=== PATIENT | male | born 1945 | race Caucasian/White ===

== ENCOUNTER 2021-07-28 10:13 | Outpatient (CLI) | payer MEDICARE | END 2021-07-28 10:14 | disposition home or self-care (01) | LOC: BICMRI 10:13 | PROVIDERS: ATTEND Physician Assistant | DX: M48.062 Spinal stenosis, lumbar region with neurogenic claudication (principal); M43.16 Spondylolisthesis, lumbar region; M47.816 Spondylosis without myelopathy or radiculopathy, lumbar region; M47.817 Spondylosis without myelopathy or radiculopathy, lumbosacral region; M48.07 Spinal stenosis, lumbosacral region | CPT/HCPCS: 72148 ==

== ENCOUNTER 2022-08-01 16:17 | Inpatient (IN) | payer MEDICARE ==
[~2022-08-01 16:17] MED LIST: Iopamidol-370 76% 500 ML MDV (1 ML CHARGE) ONE
[2022-08-01 17:32] LABS: Hemoglobin 16.9 g/dL (14.0-18.0); Mean Corpuscular HGB CONC 32.4 g/dL (32.0-36.0); Mean Corpuscular Hemoglobin 34.7 pg (27.0-31.0); Platelet Count 113 10x3/uL (130-400); RBC Distribution Width 14.2 % (11.5-14.5); Red Blood Cell (RBC) Count 4.87 mill/uL (4.70-6.10); White Blood Cell (WBC) Count 8.4 10x3/uL (4.8-10.8)
[2022-08-01 17:49] LABS: ALT (SGPT) 35 U/L (8-55); AST (SGOT) 32 U/L (5-34); Alkaline Phosphatase 90 U/L (40-110); Anion Gap 15 mmol/L (10-20); BUN (Urea Nitrogen) 25 mg/dL (8.4-25.7); Calc. Creatinine Clearance 0 mL/min (70-130); Calcium 9.3 mg/dL (7.8-10.44); Carbon Dioxide 28 mmol/L (23-31); Chloride 99 mmol/L (98-107); Estimated GFR 46; Globulin 2.1 g/dL (2.4-3.5); Glucose 93 mg/dL (83-110); Protein, Total 6.1 g/dL (5.8-8.1); Sodium 137 mmol/L (136-145)
[2022-08-01 18:22] LABS: #Eosinphils 0.1 thou/uL (0.0-0.7); #Lymphocytes 1.2 thou/uL (1.20-3.40); %Basophils 0.5 % (0.0-1.0); %Lymphocytes 14.7 % (21.0-51.0); %Monocytes 11.8 % (0.0-10.0); MDiff Complete? YES; Macrocytosis SLIGHT = 6-15 cells (100X) (0-5/hpf); Platelet Morphology Comment Appears Decreased
[2022-08-01] MEDS ORDERED: cefTRIAXone (ROCEPHIN) 1 GM VIAL ONE (18:36)
[2022-08-01 19:34] LABS: CKMB 6.5 ng/mL (0-6.6)
[2022-08-01] MEDS ORDERED: Azithromycin 500 MG VIAL ONE (19:39)
[2022-08-01] MEDS ORDERED: Furosemide 40 MG/4 ML VIAL ONE (19:39)
[2022-08-01] MEDS ORDERED: hydrALAZINE 20 MG/ML VIAL SLOW IVP PRN (19:56)
[2022-08-01 20:36] VITALS: BMI 34.4
[2022-08-01] MEDS ORDERED: Apixaban 5 MG TAB PO SCH (21:00)
[2022-08-01] MEDS ORDERED: Heparin 5,000 UNITS/ML VIAL SC SCH (21:00)
[2022-08-02] MEDS ORDERED: DULoxetine 60 MG CAP PO SCH (00:15)
[2022-08-02] MEDS: Furosemide 40 MG/4 ML VIAL SLOW IVP SCH ×2 (05:48→13:24)
[2022-08-02 07:26] LABS: #Eosinphils 0.1 thou/uL (0.0-0.7); #Lymphocytes 1.2 thou/uL (1.20-3.40); #Monocytes 0.9 thou/uL (0.11-0.59); #Neutrophils 4.5 thou/uL (1.40-6.50); %Basophils 0.5 % (0.0-1.0); %Lymphocytes 17.4 % (21.0-51.0); %Monocytes 13.5 % (0.0-10.0); %Neutrophils 67.6 % (42.0-75.0); Hemoglobin 15.8 g/dL (14.0-18.0); Mean Corpuscular HGB CONC 31.9 g/dL (32.0-36.0); Mean Platelet Volume 8.8 fL (7.4-10.4); Platelet Count 117 10x3/uL (130-400); RBC Distribution Width 14.1 % (11.5-14.5); Red Blood Cell (RBC) Count 4.64 mill/uL (4.70-6.10); White Blood Cell (WBC) Count 6.7 10x3/uL (4.8-10.8)
[2022-08-02 07:42] LABS: ALT (SGPT) 34 U/L (8-55); AST (SGOT) 38 U/L (5-34); Alkaline Phosphatase 92 U/L (40-110); Anion Gap 20 mmol/L (10-20); BUN (Urea Nitrogen) 25 mg/dL (8.4-25.7); Calc. Creatinine Clearance 60 mL/min (70-130); Calcium 9.1 mg/dL (7.8-10.44); Carbon Dioxide 24 mmol/L (23-31); Chloride 98 mmol/L (98-107); Estimated GFR 49; Globulin 2.1 g/dL (2.4-3.5); Glucose 72 mg/dL (83-110); Magnesium 1.8 mg/dL (1.6-2.6); Potassium 3.9 mmol/L (3.5-5.1); Protein, Total 6.1 g/dL (5.8-8.1); Sodium 138 mmol/L (136-145)
[2022-08-02] MEDS ORDERED: Electrolyte Replacement Protocol 1 EACH FS SCH (08:15)
[2022-08-02] MEDS: DULoxetine 60 MG CAP PO SCH (08:59)
[2022-08-02] MEDS ORDERED: Electrolyte Replacement Protocol FS PRN (09:15)
[2022-08-02] MEDS ORDERED: Magnesium 2 GM/50 ML(in water) 2 GM in Premix Bag 1 BAG IVPB SCH (09:15)
[2022-08-02] MEDS: Aspirin 81 mg Enteric Coated Tablet PO SCH (09:22)
[2022-08-02] MEDS ORDERED: Carvedilol 3.125 MG TAB PO SCH (09:45)
[2022-08-02 11:11] LABS: CKMB 6.6 ng/mL (0-6.6)
[2022-08-02] MEDS ORDERED: Azithromycin 500 MG in Sodium Chloride 0.9% 250 ML 250 ML IVPB SCH (20:00)
[2022-08-02] MEDS: Doxycycline 100 MG CAP PO SCH (21:27)
[2022-08-02] MEDS: cefTRIAXone\\ROCEPHIN 2 GM in Sodium Chloride 0.9% 100 ML IVPB SCH (21:27)
[2022-08-02] MEDS: Carvedilol 3.125 MG TAB PO SCH (21:27)
[2022-08-03] MEDS: Furosemide 40 MG/4 ML VIAL SLOW IVP SCH ×2 (05:45→14:32)
[2022-08-03] MEDS: Carvedilol 3.125 MG TAB PO SCH ×2 (08:24→20:11)
[2022-08-03] MEDS: Doxycycline 100 MG CAP PO SCH ×2 (08:24→20:11)
[2022-08-03] MEDS: Aspirin 81 mg Enteric Coated Tablet PO SCH (08:25)
[2022-08-03] MEDS: DULoxetine 60 MG CAP PO SCH (08:25)
[2022-08-03 09:12] LABS: ALT (SGPT) 35 U/L (8-55); AST (SGOT) 37 U/L (5-34); Albumin 3.9 g/dL (3.4-4.8); Alkaline Phosphatase 98 U/L (40-110); BUN (Urea Nitrogen) 24 mg/dL (8.4-25.7); Bilirubin, Total 1.3 mg/dL (0.2-1.2); Calc. Creatinine Clearance 50 mL/min (70-130); Calcium 9.4 mg/dL (7.8-10.44); Estimated GFR 43; Globulin 2.4 g/dL (2.4-3.5); Glucose 99 mg/dL (83-110); Magnesium 2.1 mg/dL (1.6-2.6); Protein, Total 6.3 g/dL (5.8-8.1)
[2022-08-03 09:23] LABS: Anion Gap 22 mmol/L (10-20); Carbon Dioxide 31 mmol/L (23-31); Chloride 91 mmol/L (98-107); Potassium 4.2 mmol/L (3.5-5.1); Sodium 140 mmol/L (136-145)
[2022-08-03 10:47] LABS: #Eosinphils 0.1 thou/uL (0.0-0.7); #Lymphocytes 1.2 thou/uL (1.20-3.40); #Monocytes 0.9 thou/uL (0.11-0.59); #Neutrophils 3.5 thou/uL (1.40-6.50); %Basophils 0.6 % (0.0-1.0); %Eosinophils 2.7 % (0.0-10.0); %Lymphocytes 21.2 % (21.0-51.0); %Monocytes 12.7 % (0.0-10.0); Band 1 % (5-11); Eosinophils 3 % (0-10); Hemoglobin 17.4 g/dL (14.0-18.0); Lymphocytes 30 % (21-51); MDiff Complete? YES; Mean Corpuscular HGB CONC 32.3 g/dL (32.0-36.0); Mean Corpuscular Hemoglobin 34.5 pg (27.0-31.0); Mean Platelet Volume 8.9 fL (7.4-10.4); Monocytes 8 % (0-10); Neutrophil 55 % (42-75); Platelet Count 124 10x3/uL (130-400); Platelet Morphology Comment Appears Decreased; RBC Morphology Normal; Reactive Lymphocytes 3 % (0-10); Red Blood Cell (RBC) Count 5.04 mill/uL (4.70-6.10); White Blood Cell (WBC) Count 5.9 10x3/uL (4.8-10.8)
[2022-08-03] MEDS: Sacubitril 24MG/Valsartan 26 MG TAB PO SCH (20:11)
[2022-08-03] MEDS: cefTRIAXone\\ROCEPHIN 2 GM in Sodium Chloride 0.9% 100 ML IVPB SCH (20:11)
[2022-08-04 05:10] LABS: Anion Gap 13 mmol/L (10-20); BUN (Urea Nitrogen) 25 mg/dL (8.4-25.7); Calc. Creatinine Clearance 54 mL/min (70-130); Calcium 8.6 mg/dL (7.8-10.44); Carbon Dioxide 35 mmol/L (23-31); Chloride 94 mmol/L (98-107); Estimated GFR 48; Glucose 109 mg/dL (83-110); Magnesium 1.8 mg/dL (1.6-2.6); Sodium 139 mmol/L (136-145)
[2022-08-04] MEDS ORDERED: Potassium Chloride 20 MEQ TAB PO SCH ×2 (08:00→17:45)
[2022-08-04] MEDS ORDERED: Magnesium 2 GM/50 ML(in water) 2 GM in Premix Bag 1 BAG IVPB SCH (08:00)
[2022-08-04] MEDS ORDERED: Furosemide 40 MG TAB PO SCH (08:45)
[2022-08-04] MEDS: Carvedilol 3.125 MG TAB PO SCH ×2 (08:54→20:14)
[2022-08-04] MEDS: Sacubitril 24MG/Valsartan 26 MG TAB PO SCH ×2 (08:54→20:14)
[2022-08-04] MEDS: Aspirin 81 mg Enteric Coated Tablet PO SCH (08:55)
[2022-08-04] MEDS: DULoxetine 60 MG CAP PO SCH (08:55)
[2022-08-04] MEDS: Doxycycline 100 MG CAP PO SCH ×2 (08:55→20:14)
[2022-08-04] MEDS ORDERED: Furosemide 40 MG/4 ML VIAL SLOW IVP SCH (09:00)
[2022-08-04 17:37] LABS: Potassium 3.2 mmol/L (3.5-5.1)
[2022-08-05 05:04] LABS: #Eosinphils 0.1 thou/uL (0.0-0.7); #Lymphocytes 1.4 thou/uL (1.20-3.40); #Neutrophils 4.2 thou/uL (1.40-6.50); %Basophils 0.3 % (0.0-1.0); %Eosinophils 2.2 % (0.0-10.0); %Lymphocytes 20.4 % (21.0-51.0); %Monocytes 14.4 % (0.0-10.0); %Neutrophils 62.7 % (42.0-75.0); Hemoglobin 17.1 g/dL (14.0-18.0); Mean Corpuscular HGB CONC 31.5 g/dL (32.0-36.0); Mean Corpuscular Hemoglobin 34.1 pg (27.0-31.0); Mean Platelet Volume 8.3 fL (7.4-10.4); Platelet Count 135 10x3/uL (130-400); RBC Distribution Width 13.9 % (11.5-14.5); Red Blood Cell (RBC) Count 5.02 mill/uL (4.70-6.10); White Blood Cell (WBC) Count 6.8 10x3/uL (4.8-10.8)
[2022-08-05 05:39] LABS: ALT (SGPT) 26 U/L (8-55); AST (SGOT) 27 U/L (5-34); Albumin 3.1 g/dL (3.4-4.8); Alkaline Phosphatase 78 U/L (40-110); Anion Gap 14 mmol/L (10-20); BUN (Urea Nitrogen) 25 mg/dL (8.4-25.7); Bilirubin, Total 0.7 mg/dL (0.2-1.2); Calc. Creatinine Clearance 46 mL/min (70-130); Calcium 8.8 mg/dL (7.8-10.44); Carbon Dioxide 31 mmol/L (23-31); Chloride 100 mmol/L (98-107); Estimated GFR 42; Globulin 2.2 g/dL (2.4-3.5); Glucose 105 mg/dL (83-110); Magnesium 2.2 mg/dL (1.6-2.6); Potassium 3.6 mmol/L (3.5-5.1); Protein, Total 5.3 g/dL (5.8-8.1); Sodium 141 mmol/L (136-145)
[2022-08-05] MEDS ORDERED: Furosemide 40 MG TAB PO SCH (07:30)
[2022-08-05] MEDS ORDERED: FLU VACC QS2022-23(65YR UP)/PF 240 MCG/0.7 ML SYRINGE IM ONE (09:00)
[2022-08-05] MEDS: Aspirin 81 mg Enteric Coated Tablet PO SCH (09:03)
[2022-08-05] MEDS: DULoxetine 60 MG CAP PO SCH (09:03)
[2022-08-05] MEDS: Doxycycline 100 MG CAP PO SCH (09:03)
[2022-08-05] MEDS: Sacubitril 24MG/Valsartan 26 MG TAB PO SCH (09:03)
[2022-08-05] MEDS: Carvedilol 3.125 MG TAB PO SCH (09:03)
[2022-08-05 12:06] VITALS: BP 141/97; TEMP 98
[2022-08-09] MEDS ORDERED: Apixaban 5 MG TAB PO SCH (09:00)
== END 2022-08-05 15:30 | disposition home or self-care (01) | DRG 280 ==
LOC: ERS 16:17 → SUATTDRO 16:17 → T4-B 19:08 → 2NO 08-02 12:27
PROVIDERS: ADMIT Family Medicine; ATTEND Internal Medicine
DX: I08.3 Combined rheumatic disorders of mitral, aortic and tricuspid valves (principal); I50.43 Acute on chronic combined systolic (congestive) and diastolic (congestive) heart failure; I21.A1 Myocardial infarction type 2; J18.9 Pneumonia, unspecified organism; J96.01 Acute respiratory failure with hypoxia; I42.9 Cardiomyopathy, unspecified; N17.9 Acute kidney failure, unspecified; Z20.822 Contact with and (suspected) exposure to COVID-19; I10 Essential (primary) hypertension; E78.5 Hyperlipidemia, unspecified; I25.10 Atherosclerotic heart disease of native coronary artery without angina pectoris; N18.30 Chronic kidney disease, stage 3 unspecified; E83.42 Hypomagnesemia; D69.6 Thrombocytopenia, unspecified; F41.9 Anxiety disorder, unspecified; G47.33 Obstructive sleep apnea (adult) (pediatric); R91.8 Other nonspecific abnormal finding of lung field; M47.816 Spondylosis without myelopathy or radiculopathy, lumbar region; M47.814 Spondylosis without myelopathy or radiculopathy, thoracic region; E87.6 Hypokalemia; Z28.21 Immunization not carried out because of patient refusal; Z90.49 Acquired absence of other specified parts of digestive tract; Z90.89 Acquired absence of other organs; Z98.890 Other specified postprocedural states
CPT/HCPCS: 36415; 71045; 71046; 71275; 78451; 80048; 80053; 82553; 83605; 83735; 83880; 84145; 84443; 84484; 85025; 85379; 87040; 93005; 93306; 93798; 93970; 94760; 96365; 96367; 96375; A9540; J0456; J0696; J1940; J3475; J3490; Q9967; U0003; U0005